=== PATIENT | female | born 1955 | race Caucasian/White ===

== ENCOUNTER 2016-07-19 07:04 | Day surgery (SDC) | payer OTHER ==
[2016-07-17 13:06] VITALS: BMI 22.1
[~2016-07-19 07:04] MED LIST: LACTATED RINGERS 1,000 ML IV SCH; LIDOCAINE 1% 20 ML VIAL (10MG/ML) FOR IV START INTRADERMA PRN
[2016-07-19 07:33] VITALS: TEMP 97.1
[2016-07-19 07:39] LABS: Glucose,Whole Blood 233 mg/dL (75-99)
[2016-07-19] MEDS ORDERED: PROPOFOL 10 MG/ML 20 ML VIAL IV ONE (07:59)
[2016-07-19] MEDS ORDERED: LIDOCAINE 1% INJ 10MG/ML (20 ML MDV) ONE (07:59)
--- NOTE | 2016-07-19 08:15 | P.PCN ---
Date of Procedure: 07/19/16 Procedure(s) Performed: BRIEF HISTORY: Patient is a 61-year-old, pleasant, white female, scheduled for an upper endoscopy with possible dilation as a part of evaluation of intermittent dysphagia to solids for the last 6 months duration. She was diagnosed with a Schatzki's ring about 2 years ago and underwent an upper endoscopy with dilation and did well for a year. PROCEDURE PERFORMED: Esophagogastroduodenoscopy with biopsy and dilation. PREOPERATIVE DIAGNOSIS: Intermittent dysphagia to solids. IV sedation per anesthesia. PROCEDURE: After informed consent was obtained, the patient was brought into the endoscopy unit. IV conscious sedation was administered by Anesthesia under continuous monitoring. Initially the Olympus GIF-140 video endoscope was inserted into the mouth. Esophagus intubated without any difficulty. It was gradually advanced into the stomach and duodenum and carefully examined. The bulb and the second part of the duodenum appeared normal. The scope at this time was withdrawn to the stomach, adequately insufflated with air, and upon careful examination, mucosa of the antrum, body, cardia and the fundus appeared normal. The scope was then withdrawn into the esophagus. Small hiatal hernia noted. The GE junction was located at 36 cm from the incisors. There was a distal esophageal Schatzki's ring identified and this was dilated using 18-20 mm balloon for total of 1 minute. Also there was a short segment of Churchill's esophagus extending 1 segment of proximal to the GE junction and this was biopsied. There were 2 small superficial erosions at the GE junction consistent with mild reflux esophagitis. The rest of the esophagus appeared normal and the patient tolerated the procedure well. IMPRESSION: 1. Distal esophageal Schatzki's ring status post balloon dilation with 18-20 mm TTS balloon as described above. 2. Small hiatal hernia, short segment Churchill's esophagus and mild reflux esophagitis. RECOMMENDATIONS: The findings of this examination were discussed with the patient as well as her family. She was advised to be on a clear liquid diet today and follow antireflux measures. She'll be started on Prilosec 20 mg daily and she was briefly educated about antireflux measures. She was advised to follow with the biopsy results and if the biopsy confirms the presence of Churchill's esophagus, she can have a repeat upper endoscopy in 2 years as part of surveillance.
[2016-07-19 08:46] VITALS: BP 140/84; PULSE 74; RESP 18
== END 2016-07-19 09:09 | disposition home or self-care (01) ==
LOC: ORWHC2ENDO 07:04
PROVIDERS: ATTEND Internal Medicine Gastroenterology
DX: K22.2 Esophageal obstruction (principal); K22.70 Barrett's esophagus without dysplasia; K21.0 Gastro-esophageal reflux disease with esophagitis; K44.9 Diaphragmatic hernia without obstruction or gangrene; E78.5 Hyperlipidemia, unspecified; E11.9 Type 2 diabetes mellitus without complications; Z79.84 Long term (current) use of oral hypoglycemic drugs; Z79.811 Long term (current) use of aromatase inhibitors; Z79.899 Other long term (current) drug therapy
CPT/HCPCS: 88305; 43239; 43249; J2001; J2704; C1726

== ENCOUNTER → 2016-09-25 | Outpatient (CLI) | payer OTHER ==
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
== END | disposition home or self-care (01) ==
LOC: RADBDWWP 08:50
PROVIDERS: ATTEND Internal Medicine Hematology & Oncology
DX: M85.88 Other specified disorders of bone density and structure, other site (principal); C50.412 Malignant neoplasm of upper-outer quadrant of left female breast
CPT/HCPCS: 77080

== ENCOUNTER 2017-03-25 08:37 | Emergency (ER) | payer OTHER ==
[2017-03-25 08:44] VITALS: BP 129/63; PULSE 79; RESP 20; TEMP 98.9
[2017-03-25] MEDS ORDERED: methylPREDNISolone SOD SUCCI 125 MG/2 ML VIAL IM STA (08:51)
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
--- NOTE | 2017-03-25 09:04 | XR ---
EXAMINATION TYPE: XR chest 2V DATE OF EXAM: 03/25/2017 HISTORY: cough. REFERENCE: Previous study dated 10/15/2012. FINDINGS: There has been a previous left axillary dissection. There has been a left-sided mastectomy. The lungs appear clear. Pleural space are clear. The heart is not enlarged. IMPRESSION: 1. NO ACUTE INTRATHORACIC ABNORMALITY. 2. POSTSURGICAL CHANGE.
== END 2017-03-25 09:14 | disposition home or self-care (01) ==
LOC: EC 08:37
DX: J45.901 Unspecified asthma with (acute) exacerbation (principal); E11.9 Type 2 diabetes mellitus without complications; Z85.3 Personal history of malignant neoplasm of breast; Z91.040 Latex allergy status; Z79.84 Long term (current) use of oral hypoglycemic drugs; Z79.899 Other long term (current) drug therapy
CPT/HCPCS: 71020; 99283; 96372; J2930

== ENCOUNTER → 2017-05-23 | Outpatient (CLI) | payer OTHER ==
[2017-05-23 17:21] LABS: Alternaria alternata IgE <0.10 kU/L; Aspergillus fumagatus IgE <0.10 kU/L; Cladosporian herbarum IgE <0.10 kU/L; Clam IgE <0.10 kU/L; Egg White IgE 1.04 kU/L; Maple (Box Elder) IgE <0.10 kU/L; Orchard Grs(Cocksfoot) IgE 3.46 kU/L; Peanut IgE 1.55 kU/L; Ragweed,Common IgE 3.22 kU/L; Scallop IgE <0.10 kU/L; Soybean IgE 0.16 kU/L
== END | disposition home or self-care (01) ==
LOC: LABWHC1 10:41
PROVIDERS: ATTEND Internal Medicine Critical Care Medicine
DX: J31.0 Chronic rhinitis (principal); T78.40XA Allergy, unspecified, initial encounter; J45.909 Unspecified asthma, uncomplicated
CPT/HCPCS: 36415; 82785; 86003

== ENCOUNTER → 2017-07-23 | Outpatient (CLI) | payer OTHER ==
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
== END | disposition home or self-care (01) ==
LOC: RADBDWWP 10:08
PROVIDERS: ATTEND Internal Medicine Hematology & Oncology
DX: M85.80 Other specified disorders of bone density and structure, unspecified site (principal); C50.412 Malignant neoplasm of upper-outer quadrant of left female breast
CPT/HCPCS: 77080

== ENCOUNTER → 2018-07-30 | Outpatient (CLI) | payer OTHER ==
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
== END ==
LOC: RADBDWWP 10:37
PROVIDERS: ATTEND Internal Medicine Hematology & Oncology
DX: M85.851 Other specified disorders of bone density and structure, right thigh (principal); C50.412 Malignant neoplasm of upper-outer quadrant of left female breast; Z79.890 Hormone replacement therapy
CPT/HCPCS: 77080

== ENCOUNTER 2020-02-27 08:31 | Emergency (ER) | payer OTHER ==
[2020-02-27 08:44] VITALS: RESP 18
--- NOTE | 2020-02-27 09:26 | XR ---
EXAMINATION TYPE: XR chest 2V DATE OF EXAM: 02/27/2020 COMPARISON: 03/12/2018 TECHNIQUE: PA and lateral views submitted. HISTORY: Shortness of breath FINDINGS: The lungs are clear and there is no pneumothorax, pleural effusion, or focal pneumonia. Surgical cl ips in the left axilla. No overt failure. Heart size normal. Hypertrophic and degenerative change of the spine. Chronic widening of the right AC joints stable from prior exam correlate for AC joint inju ry. IMPRESSION: 1. No acute process.
[2020-02-27] MEDS ORDERED: methylPREDNISolone SOD SUCCI 125 MG/2 ML VIAL IM ONE (09:38)
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
[2020-02-27 10:22] VITALS: BP 123/76; PULSE 86; TEMP 98
== END 2020-02-27 10:28 | disposition home or self-care (01) ==
LOC: EC 08:31
DX: J45.909 Unspecified asthma, uncomplicated (principal); Z91.040 Latex allergy status; E11.9 Type 2 diabetes mellitus without complications; Z79.84 Long term (current) use of oral hypoglycemic drugs; Z79.899 Other long term (current) drug therapy; Z79.51 Long term (current) use of inhaled steroids; Z85.3 Personal history of malignant neoplasm of breast; Z92.21 Personal history of antineoplastic chemotherapy; Z92.3 Personal history of irradiation; Z98.890 Other specified postprocedural states; Z87.891 Personal history of nicotine dependence
CPT/HCPCS: 71046; 99284; 96372; J2930

== ENCOUNTER → 2020-11-16 | Outpatient (CLI) | payer MEDICARE, OTHER | END | disposition home or self-care (01) | LOC: LABWHC1 16:34 | PROVIDERS: ATTEND Internal Medicine | DX: Z53.9 Procedure and treatment not carried out, unspecified reason (principal) ==

== ENCOUNTER → 2020-11-17 | Outpatient (CLI) | payer MEDICARE, OTHER | END | disposition home or self-care (01) | LOC: LABWHC1 08:47 | PROVIDERS: ATTEND Internal Medicine | DX: Z20.822 Contact with and (suspected) exposure to COVID-19 (principal) | CPT/HCPCS: U0003; C9803; U0005 ==

== ENCOUNTER → 2021-02-21 | Outpatient (CLI) | payer MEDICARE, OTHER ==
--- NOTE | 2021-02-21 11:06 | XR ---
EXAMINATION TYPE: XR chest 2V DATE OF EXAM: 02/21/2021 COMPARISON: NONE TECHNIQUE: PA and lateral views submitted. HISTORY: Breast cancer with cough FINDINGS: The lungs are clear and there is no pneumothorax, pleural effusion, or focal pneumonia. Postsurgica l change overlying the left axilla. Heart size normal. No overt failure. Degenerative changes of the spine. Mild hyperinflation correlate for COPD. Chronic findings involving the right shoulder. IMPRESSION: 1. No acute process.
== END | disposition home or self-care (01) ==
LOC: RADXRYALE 10:32
PROVIDERS: ATTEND Internal Medicine
DX: R05 Cough (principal)
CPT/HCPCS: 71046

== ENCOUNTER → 2021-04-11 | Outpatient (CLI) | payer MEDICARE, OTHER ==
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
== END | disposition home or self-care (01) ==
LOC: RADBDWWP 04-04 09:52
PROVIDERS: ATTEND Internal Medicine Hematology & Oncology
DX: C50.412 Malignant neoplasm of upper-outer quadrant of left female breast (principal); M85.9 Disorder of bone density and structure, unspecified; Z79.890 Hormone replacement therapy
CPT/HCPCS: 77080

== ENCOUNTER 2021-10-04 10:53 | Emergency (ER) | payer MEDICARE, OTHER ==
[2021-10-04 11:19] LABS: Glucose,Whole Blood 131 mg/dL (75-99)
[2021-10-04] MEDS ORDERED: IBUPROFEN 600 MG TAB PO STA (11:24)
[2021-10-04] MEDS ORDERED: ACETAMINOPHEN TAB 325 MG TAB PO STA (11:24)
[2021-10-04 12:06] LABS: Basophils % (A) 0 %; Eosinophils # (A) 0.1 k/uL (0-0.7); Eosinophils % (A) 2 %; HCT 36.8 % (34.0-46.0); HGB 11.7 gm/dL (11.4-16.0); Hypochromasia Slight; Lymphocytes # (A) 0.3 k/uL (1.0-4.8); Lymphocytes % (A) 3 %; MCH 25.2 pg (25.0-35.0); MCHC 31.8 g/dL (31.0-37.0); MCV 79.1 fL (80.0-100.0); Mean Platelet Volume 6.9; Monocytes # (A) 0.2 k/uL (0-1.0); Monocytes % (A) 2 %; Neutrophils # (A) 7.1 k/uL (1.3-7.7); Neutrophils % (A) 92 %; Platelet Count 310 k/uL (150-450); RBC 4.66 m/uL (3.80-5.40); RDW 14.9 % (11.5-15.5); WBC 7.8 k/uL (3.8-10.6)
[2021-10-04 12:26] LABS: Albumin 3.7 g/dL (3.5-5.0); Calcium 9.1 mg/dL (8.4-10.2); Potassium 4.2 mmol/L (3.5-5.1); Total Bilirubin 0.6 mg/dL (0.2-1.3); Total Protein 6.7 g/dL (6.3-8.2)
--- NOTE | 2021-10-04 12:41 | XR ---
EXAMINATION TYPE: XR chest 1V DATE OF EXAM: 10/04/2021 COMPARISON: 02/21/2021 INDICATION: Fever TECHNIQUE: Single frontal view of the chest is obtained. FINDINGS: The heart size is normal. The pulmonary vasculature is normal. There is mild diffuse increased opacity over the left lower lung field, stable in appearance. Postsur gical changes are in the left axillary region. There has been a left mastectomy. Osseous structures a ppear normal. IMPRESSION: 1. No acute pulmonary process.
--- NOTE | 2021-10-04 12:44 | XR ---
EXAMINATION TYPE: XR thoracic spine 2V DATE OF EXAM: 10/04/2021 COMPARISON: None HISTORY: Fall, pain TECHNIQUE: 3 view thoracic spine FINDINGS: There are 12 thoracic type vertebral bodies. The pedicles are intact. Disc heights appear p reserved. Thoracic vertebral body heights are preserved. There appears to be L1 there may be some sup erior endplate compression deformity. Consider additional evaluation of the lumbar spine. Correlate w ith the level of pain pain IMPRESSION: 1. There may be a compression deformity identified on the lateral projection in the region of L1. Co nsider additional workup with lumbar spine imaging. 2. Thoracic spine appears intact as visualized
[2021-10-04 12:49] LABS: Influenza A Not Detected (Not Detectd); Influenza B Not Detected (Not Detectd)
[2021-10-04 12:55] LABS: Appearance,Urine Cloudy (Clear); Bacteria,Urine Occasional /hpf; Bilirubin,Urine 1+ (Negative); Blood,Urine Negative (Negative); Color,Urine Yellow; Glucose,Urine (UA) Negative (Negative); Hyaline Casts,Urine 29 /lpf (0-2); Ketones,Urine Trace (Negative); Leukocyte Esterase,Urine Large (Negative); Mucus,Urine Occasional /hpf; Nitrite,Urine Negative (Negative); Protein,Urine 1+ (Negative); RBC,Urine 4 /hpf (0-5); Specific Gravity,Urine 1.036 (1.001-1.035); Squamous Epithelial Cell,Urine 3 /hpf (0-4); WBC,Urine 32 /hpf (0-5)
--- NOTE | 2021-10-04 13:33 | XR ---
EXAMINATION TYPE: XR lumbar spine 2 or 3V DATE OF EXAM: 10/04/2021 COMPARISON: 08/18/2015 HISTORY: Abnormal x-ray, fall, pain TECHNIQUE: 3 view lumbar spine FINDINGS: There are 4 lumbar type vertebral bodies. T12 ribs are rudimentary. The L5 level has attemp thomas sacralization bilaterally. There is a grade 1 approaching grade 2 spondylolisthesis of L4 internal 5. There is superior endplate changes at the L2 level. This was present on the previous examination and appears old Some mild sclerosis may be at the inferior endplate of L1. IMPRESSION: 1. Old mild compression deformity superior endplate L2. 2. Grade 1-2 spondylolisthesis of L4 internal 5. 3. Attempted sacralization of L5 and rudimentary ribs on T12
[2021-10-04] MEDS ORDERED: cefTRIAXone IN SWFI 1,000 MG/10 ML SYRINGE IVP STA (13:35)
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
[2021-10-04 14:27] VITALS: BP 106/67; PULSE 79; RESP 14; TEMP 98.4
== END 2021-10-04 14:39 | disposition home or self-care (01) ==
LOC: EC 10:53
DX: S30.0XXA Contusion of lower back and pelvis, initial encounter (principal); E11.9 Type 2 diabetes mellitus without complications; J45.909 Unspecified asthma, uncomplicated; Z87.891 Personal history of nicotine dependence; Z20.822 Contact with and (suspected) exposure to COVID-19; N39.0 Urinary tract infection, site not specified; Z91.040 Latex allergy status; W18.30XA Fall on same level, unspecified, initial encounter
CPT/HCPCS: 36415; 80053; 85025; 81001; 87086; 87636; 72070; 72100; 71045; 99284; 96374; J0696

== ENCOUNTER → 2022-04-10 | Outpatient (CLI) | payer MEDICARE, OTHER ==
[~2022-04-10] MED LIST changes: -LACTATED RINGERS 1,000 ML IV SCH; -LIDOCAINE 1% 20 ML VIAL (10MG/ML) FOR IV START INTRADERMA PRN; +SODIUM CHLORIDE 0.9% 500 ML 500 ML in EMPTY BAG 1 BAG IV PRN; +ZOLEDRONIC ACID 4 MG in SODIUM CHLORIDE 0.9% 100 ML IV NR
[2022-04-10 09:52] VITALS: BP 150/77; PULSE 87; RESP 16; TEMP 97.7
[2022-04-10 10:54] LABS: Albumin 4.4 g/dL (3.5-5.0); Calcium 9.5 mg/dL (8.4-10.2); Potassium 3.9 mmol/L (3.5-5.1); Total Bilirubin 0.6 mg/dL (0.2-1.3); Total Protein 7.2 g/dL (6.3-8.2)
== END | disposition home or self-care (01) ==
LOC: EDSTATUS 09:30 → PROCWHC3 09:43
PROVIDERS: ATTEND Internal Medicine Hematology & Oncology
DX: C50.412 Malignant neoplasm of upper-outer quadrant of left female breast (principal)
CPT/HCPCS: 80053; 96365; 36415; J3489

== ENCOUNTER 2023-05-16 10:33 | Emergency (ER) | payer MEDICARE, OTHER ==
[2023-05-16 11:05] VITALS: RESP 18; TEMP 98.3
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
[2023-05-16] MEDS ORDERED: BACITRACIN OINT 1 EACH PACKET TOPICAL ONE (13:00)
--- NOTE | 2023-05-16 13:00 | XR ---
EXAMINATION TYPE: XR finger RT DATE OF EXAM: 05/16/2023 12:53 PM INDICATION: Patient age:Female; 68 years old; Reason for study: pointer finger lac; [facility]. COMPARISON: None TECHNIQUE: Frontal, lateral and oblique views of the second digit of the right hand were obtained. FINDINGS: No acute fracture or dislocation. No radiopaque foreign body. No significant soft tissue sw elling. IMPRESSION: No acute osseous pathology. No radiopaque foreign body.
[2023-05-16] MEDS ORDERED: DIPH,PERTUS(ACELL)TETVAC-LF 0.5 ML VIAL IM ONE (13:08)
[2023-05-16 13:38] VITALS: BP 110/62; PULSE 82
== END 2023-05-16 13:37 | disposition home or self-care (01) ==
LOC: EC 10:33
DX: S61.210A Laceration without foreign body of right index finger without damage to nail, initial encounter (principal); E11.9 Type 2 diabetes mellitus without complications; J45.909 Unspecified asthma, uncomplicated; Z23 Encounter for immunization; Z79.84 Long term (current) use of oral hypoglycemic drugs; Z79.899 Other long term (current) drug therapy; Z91.040 Latex allergy status; W26.0XXA Contact with knife, initial encounter; Y93.G9 Activity, other involving cooking and grilling
CPT/HCPCS: 90471; 90715; 99283

== ENCOUNTER → 2023-06-28 | Outpatient (CLI) | payer MEDICARE, OTHER ==
--- NOTE | 2023-06-28 15:13 | XR ---
Two-view right hip. DATE: 06/28/2023. COMPARISON: None available. HISTORY: Pain after fall. IMPRESSION: There is no fracture, subluxation or dislocation. Well-corticated ossific density seen posterior to t he acetabulum is likely related to an old ossification center. The joint spaces otherwise appear preserved.
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
== END | disposition home or self-care (01) ==
LOC: RADXRYALE 14:20
PROVIDERS: ATTEND Internal Medicine
DX: M16.11 Unilateral primary osteoarthritis, right hip (principal); W01.0XXA Fall on same level from slipping, tripping and stumbling without subsequent striking against object, initial encounter
CPT/HCPCS: 72170; 73502

== ENCOUNTER → 2024-10-29 | Outpatient (CLI) | payer MEDICARE, OTHER ==
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
== END | disposition home or self-care (01) ==
LOC: RADMRIMAIN 13:20
PROVIDERS: ATTEND Orthopaedic Surgery
DX: M47.26 Other spondylosis with radiculopathy, lumbar region (principal); M43.16 Spondylolisthesis, lumbar region; M48.061 Spinal stenosis, lumbar region without neurogenic claudication; M51.16 Intervertebral disc disorders with radiculopathy, lumbar region; M62.81 Muscle weakness (generalized)
CPT/HCPCS: 72148